=== PATIENT | female | born 1985 | race Caucasian/White ===

== ENCOUNTER → 2021-02-14 14:29 | Outpatient (CLI) | payer OTHER, SELFPAY ==
--- NOTE | ~2021-02-14 | XR_ITS ---
XR knee RT 3V DATE: 02/14/2021 14:48 INDICATION: Right knee pain TECHNIQUE: [place], standing AP and lateral views COMPARISON: None FINDINGS: No fracture or dislocation, periosteal reaction or bone destruction, radiopaque intra-artic ular loose body or chondrocalcinosis. Small suprapatellar knee joint effusion is suggested. IMPRESSION: Suggestion of small suprapatellar knee joint effusion; otherwise negative Reviewed, dictated and finalized at location B. IMPRESSION: Suggestion of small suprapatellar knee joint effusion; otherwise erica rios
== END ==
PROVIDERS: PCP Nurse Practitioner Family; Visit Provider Nurse Practitioner Family
DX: M25.561 Pain in right knee (principal)
CPT/HCPCS: 73562

== ENCOUNTER 2021-10-10 10:37 | Emergency (ER) | payer OTHER, SELFPAY ==
--- NOTE | ~2021-10-10 | XR_ITS ---
EXAMINATION: XR knee LT 3V DATE: 10/10/2021 11:46 INDICATION: Left knee pain. Injury. TECHNIQUE: 3 views of left knee were obtained. COMPARISON: None. FINDINGS: Bone alignment is normal. No fracture. There is mild osteoarthritis of medial compartment c haracterized by a tiny marginal osteophyte. No joint space narrowing. There is a small knee joint eff usion. IMPRESSION: 1. Mild left knee osteoarthritis. 2. Small left knee joint effusion. Reviewed, dictated and finalized at location A.
[2021-10-10 10:41] VITALS: BP 128/74; PULSE 88; RESP 18; TEMP 36.7; O2SAT 97
--- NOTE | 2021-10-10 11:49 | ED_ITS ---
HPI - Extremity Injury (Lower) General Chief Complaint: Extremity Injury, Lower Stated Complaint: Left Leg Pain, Knee Time Seen by Provider: 10/10/21 11:48 Source: patient Mode of arrival: ambulatory Limitations: no limitations History of Present Illness HPI Narrative: Patient is a 36 years old white female status post right knee meniscus repair April 2021, presented to the ED with left knee pain after pushing a stack of book to keep it away from the door by her left foot, felt a pop at the left knee. She denies other injuries. Related Data Allergies Allergy/AdvReac Type Severity Reaction Status Date / Time No Known Allergies Allergy Unverified 02/01/19 15:47 Review of Systems Review of Systems: All systems reviewed & are unremarkable except as noted in HPI and below Exam Narrative: General appearance: Well-developed, well-nourished Skin: Normal color Chest and respiratory: Airway patent, no respiratory distress, no accessory muscle use Heart: Regular rate/rhythm Vascular: Normal peripheral pulses, normal capillary refill. Musculoskeletal: Slight anterior medial tenderness, no swelling, no deformity, slight limited range of motion of left knee because of pain. Neurologic: Alert and oriented ?3, [employer] is normal as tested, no gross motor deficit Course Course Emergency Course: Left knee sprain/strain is my concern. Vital Signs Vital signs: Vital Signs Temperature 36.7 C 10/10/21 10:41 Pulse Rate 88 10/10/21 10:41 Respiratory Rate 18 10/10/21 10:41 Blood Pressure 128/74 10/10/21 10:41 Pulse Oximetry 97 10/10/21 10:41 Oxygen Delivery Room Air 10/10/21 10:41 Temperature 36.7 C 10/10/21 10:41 Pulse Rate 88 10/10/21 10:41 Respiratory Rate 18 10/10/21 10:41 Blood Pressure 128/74 10/10/21 10:41 Pulse Oximetry 97 10/10/21 10:41 Oxygen Delivery Room Air 10/10/21 10:41 MDM - Extremity Injury (Lower) Imaging Data Radiologist's impression: Impressions Knee X-Ray 10/10/21 11:50 IMPRESSION: 1. Mild left knee osteoarthritis. 2. Small left knee joint effusion. Critical Care Time Critical Care Time Critical Care Time: No Discharge Plan Discharge Clinical Impression: Left knee sprain Patient Disposition: Home, Self-Care Condition: Stable Instructions: Antibiotic Form, Knee Sprain (DC) Additional Instructions: Return if symptoms are worsening , call Dr. Kramer for appointment, take Tylenol as as needed for aches and pain, continue home medications. Prescriptions: New naproxen [Naprosyn] 500 mg tablet 500 mg PO BID PRN (Reason: pain) Qty: 14 0RF Follow-up/Referrals: Cristin,Ebonie Chapman [employer] [Primary Care Provider] - Stand Alone Forms: Work/School Release IP
[2021-10-10] MEDS: IBUPROFEN 600 MG TABLET PO (12:13)
[2021-10-10] MEDS: ACETAMINOPHEN 325 MG TABLET 650 MG PO (12:13)
== END 2021-10-10 12:29 | disposition home or self-care (01) ==
PROVIDERS: Emergency Provider Emergency Medicine; PCP Nurse Practitioner Family
DX: S83.92XA Sprain of unspecified site of left knee, initial encounter (principal); X50.0XXA Overexertion from strenuous movement or load, initial encounter
CPT/HCPCS: 73562; 99283; A9270